=== PATIENT | male | born 1985 | race Caucasian/White ===

== ENCOUNTER 2021-11-16 06:28 | Emergency (ER) | payer OTHER ==
[2021-11-16] MEDS ORDERED: Clindamycin HCl 150 MG Cap PO ONE (06:37)
[2021-11-16] MEDS ORDERED: Ketorolac 10 MG Tab PO ONE (06:38)
[2021-11-16] MEDS ORDERED: Ketorolac 30 MG/ML SDV IM ONE (06:41)
== END 2021-11-16 06:47 | disposition home or self-care (01) ==
LOC: MW.ED 06:28
DX: K08.89 Other specified disorders of teeth and supporting structures (principal)
CPT/HCPCS: 96372; 99282; A9270; J1885